=== PATIENT | female | born 1965 | race Caucasian/White ===

== ENCOUNTER → 2020-10-09 | Day surgery (SDC) | payer OTHER ==
[~2020-10-09] MED LIST: AMOXICILLIN500 MG PO; COZAAR100 MG PO; EUTHYROX75 MCG PO; LASIX20 MG PO; METOPROLOL SUCC50 MG PO; POTASSIUM CHLO10 MEQ PO; SERTRALINE HCL100 MG PO; XYZAL5 MG PO
[2020-10-09 07:22] LABS: HCT 44.1 % (37.0-47.0); HGB 13.3 g/dl (12.5-16.0); MCH 24.2 pg (25.0-31.0); MCHC 30.2 g/dL (32.0-36.0); MCV 80.3 fL (78.0-100.0); MPV 11.7 fL (6.0-9.5); RBC 5.49 M/uL (4.20-5.40); RDW 15.2 % (11.5-14.0); WBC 9.3 K/uL (4.0-10.5)
[2020-10-09 07:42] LABS: ALBUMIN 3.7 g/dL (3.4-5.0); BILIRUBIN - TOTAL 0.6 mg/dL (0.2-1.0); BUN/CREAT RATIO (CALC) 15.1 RATIO; CREATININE 0.86 mg/dL (0.51-0.95); GLOBULIN (CALCULATION) 4.6 g/dL; POTASSIUM 4.1 mmol/L (3.5-5.1); TOTAL PROTEIN 8.3 g/dL (6.4-8.2)
== END | disposition home or self-care (01) ==
LOC: FAS 06:53
PROVIDERS: Surgery
DX: Z12.11 Encounter for screening for malignant neoplasm of colon (principal); D12.3 Benign neoplasm of transverse colon; F32.9 Major depressive disorder, single episode, unspecified; E03.9 Hypothyroidism, unspecified; Z79.899 Other long term (current) drug therapy; Z20.822 Contact with and (suspected) exposure to COVID-19; Z90.49 Acquired absence of other specified parts of digestive tract; Z98.51 Tubal ligation status; Z82.49 Family history of ischemic heart disease and other diseases of the circulatory system
CPT/HCPCS: 36415; 80053; J0690; J2704; J7120